=== PATIENT | female | born 2000 | race Caucasian/White ===

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

== ENCOUNTER → 2018-02-23 | Outpatient (CLI) | payer BC ==
--- NOTE | 2018-02-24 08:45 | ECHOF ---
Referral Reason:R00.8 Irregular Heartbeat MEASUREMENTS -------- HEIGHT: 165.1 cm WEIGHT: 81.6 kg BP: RVIDd: 2.8 cm (< 3.3) IVSd: 1.1 cm (0.6 - 1.1) LVIDd: 4.7 cm (3.9 - 5.3) LVPWd: 0.9 cm (0.6 - 1.1) IVSs: 1.3 cm LVIDs: 2.8 cm LVPWs: 1.5 cm LAESV Index (A-L): 24.84 ml/m Ao Diam: 2.6 cm (2.0 - 3.7) AV Cusp: 2.0 cm (1.5 - 2.6) LA Diam: 3.1 cm (2.7 - 3.8) EPSS: 0.6 cm MV E Mekhi: 0.91 m/s MV DecT: 250 ms MV A Mekhi: 0.64 m/s MV E/A Ratio: 501.03 RAP: 5.00 mmHg RVSP: 17.88 mmHg MV EF SLOPE: 209.63 mm/s (70 - 150) MV EXCURSION: 1.69 cm (> 18.000) FINDINGS -------- Sinus rhythm with extra systolic beats. This was a technically good study. The left ventricular size is normal. Left ventricular wall thickness is normal. Overall left vent ricular systolic function is normal with, an EF between 55 - 60 %. The right ventricle is normal in size and function. Normal LA size by volume 22+/-6 ml/m2. The right atrium is normal in size. The aortic valve is trileaflet, and appears structurally normal. No aortic stenosis or regurgitation. The mitral valve is normal. There is trace mitral regurgitation. Trace tricuspid regurgitation present. Right ventricular systolic pressure is normal at < 35 mmHg. There is no evidence of pulmonary hypertension. Trace/mild (physiologic) pulmonic regurgitation. The aortic root size is normal. Normal inferior vena cava with normal inspiratory collapse consistent with estimated right atrial pre ssure of 5 mmHg. There is no pericardial effusion. CONCLUSIONS -------- 1. Sinus rhythm with extra systolic beats. 2. This was a technically good study. 3. The left ventricular size is normal. 4. Left ventricular wall thickness is normal. 5. Overall left ventricular systolic function is normal with, an EF between 55 - 60 %. 6. Normal LA size by volume 22+/-6 ml/m2. 7. The aortic valve is trileaflet, and appears structurally normal. No aortic stenosis or regurgitati on. 8. There is trace mitral regurgitation. 9. Trace tricuspid regurgitation present. 10. Right ventricular systolic pressure is normal at < 35 mmHg. 11. There is no evidence of pulmonary hypertension. 12. Trace/mild (physiologic) pulmonic regurgitation. 13. The aortic root size is normal. 14. There is no pericardial effusion. CHARTERED ACCOUNTANT: Haroon Garcia RDCS
== END | disposition home or self-care (01) ==
LOC: RADECHMAIN 15:30
PROVIDERS: ATTEND Internal Medicine
DX: R00.8 Other abnormalities of heart beat (principal)
CPT/HCPCS: 93306

== ENCOUNTER → 2020-06-30 | Outpatient (CLI) | payer BC ==
--- NOTE | 2020-06-30 11:39 | ECHOF ---
Referral Reason:R00.2 palpitations MEASUREMENTS -------- HEIGHT: 165.1 cm WEIGHT: 99.8 kg BP: RVIDd: 2.6 cm (< 3.3) IVSd: 1.3 cm (0.6 - 1.1) LVIDd: 3.9 cm (3.9 - 5.3) LVPWd: 1.5 cm (0.6 - 1.1) IVSs: 1.7 cm LVIDs: 2.6 cm LVPWs: 1.7 cm LAESV Index (A-L): 12.74 ml/m Ao Diam: 2.5 cm (2.0 - 3.7) AV Cusp: 2.1 cm (1.5 - 2.6) MV EXCURSION: 24.816 mm (> 18.000) MV EF SLOPE: 135 mm/s (70 - 150) EPSS: 0.4 cm MV E Mekhi: 0.73 m/s MV DecT: 310 ms MV A Mekhi: 0.35 m/s MV E/A Ratio: 2.07 RAP: 5.00 mmHg RVSP: 30.18 mmHg FINDINGS -------- This was a technically adequate study. The left ventricular size is normal. There is mild concentric left ventricular hypertrophy. Overa ll left ventricular systolic function is normal with, an EF between 55 - 60 %. The diastolic fillin g pattern is normal for the age of the patient 6.95. The right ventricle is normal in size. Normal LA size by volume 22+/-6 ml/m2. The right atrial size is normal. Interatrial and interventricular septum intact. There is no evidence of aortic regurgitation. There is no evidence of aortic stenosis. No mitral regurgitation. Mild tricuspid regurgitation present. There is no evidence of pulmonary hypertension. The right v entricular systolic pressure, as measured by Doppler, is 30.18mmHg. Trace/mild (physiologic) pulmonic regurgitation. The aortic root size is normal. Normal inferior vena cava with normal inspiratory collapse consistent with estimated right atrial pre ssure of 5 mmHg. There is no pericardial effusion. CONCLUSIONS -------- 1. The left ventricular size is normal. 2. There is mild concentric left ventricular hypertrophy. 3. Overall left ventricular systolic function is normal with, an EF between 55 - 60 %. 4. The diastolic filling pattern is normal for the age of the patient 6.95 5. Mild tricuspid regurgitation present. 6. Trace/mild (physiologic) pulmonic regurgitation. LINE DRIVER: Augusta Pulliam RDCS
== END | disposition home or self-care (01) ==
LOC: RADECHMAIN 10:42
PROVIDERS: ATTEND Internal Medicine
DX: I08.8 Other rheumatic multiple valve diseases (principal)
CPT/HCPCS: 93306

== ENCOUNTER 2021-02-11 10:33 | Day surgery (SDC) | payer BC ==
[2021-02-10 08:36] VITALS: BMI 37.3
[2021-02-11 11:05] VITALS: RESP 16; TEMP 98.3
[2021-02-11] MEDS ORDERED: LACTATED RINGERS 1,000 ML IV ONE (11:08)
[2021-02-11] MEDS ORDERED: LIDOCAINE 1% (10MG/ML) FOR IV START INTRADERMA ONE (11:09)
[2021-02-11] MEDS ORDERED: fentaNYL (PF) 50 MCG/ML 2 ML AMP ONE (11:59)
[2021-02-11] MEDS ORDERED: MIDAZOLAM 2 MG/2 ML VIAL ONE (11:59)
[2021-02-11] MEDS ORDERED: PROPOFOL 10 MG/ML 20 ML VIAL IV ONE (11:59)
--- NOTE | 2021-02-11 12:38 | P.PCN ---
Date of Procedure: 02/11/21 Description of Procedure: BRIEF HISTORY: Patient is a 20-year-old female presented for outpatient colonoscopy for evaluation of blood in stool. Patient reports intermittent blood per rectum. She reports alternating diarrhea and constipation. She does note a intolerance to dairy. She reports abdominal bloating, distention and pain. No family history of colon cancer, Crohn's disease or ulcerative colitis. PROCEDURE PERFORMED: Colonoscopy with biopsy. PREOPERATIVE DIAGNOSIS: Blood in stool, change in bowel habits, no prior colonoscopy. ESTIMATED BLOOD LOSS: Minimal. IV sedation per Anesthesia. PROCEDURE: After informed consent was obtained, the patient, was brought into the endoscopy unit. IV sedation was administered by Anesthesia under continuous monitoring. Digital rectal examination was normal. Initially the Olympus CF-190 flexible video colonoscope was then inserted in the rectum, gradually advanced into the cecum without any difficulty. Careful examination was performed as the scope was gradually being withdrawn. Ileocecal valve and the appendiceal orifice were visualized and appeared normal. Prep was excellent. Mucosa of the cecum, ascending colon, transverse colon, descending colon, sigmoid colon, and rectum appeared normal, with random biopsies taken of the right colon, left colon and rectum. Terminal ileum was intubated and appeared normal with biopsies taken. There was only a small amount of mild erythema in the rectum likely prep re lated. Retroflexion was performed in the rectum and no lesions were seen. The patient tolerated the procedure well. IMPRESSION: Minimal superficial erythema in the distal rectum likely prep related changes, otherwise normal-appearing colon from rectum to cecum with normal-appearing terminal ileum. Random biopsies taken of the right colon, left colon, rectum and terminal ileum. Internal hemorrhoids. RECOMMENDATIONS: Findings of this examination were discussed with the patient and her family. Okay to resume diet. Okay to resume medications. Await pathology from biopsies. Patient was recommended to try a FODMAP diet for symptomatic improvement.
[2021-02-11 12:58] VITALS: BP 118/65; PULSE 98
== END 2021-02-11 13:38 | disposition home or self-care (01) ==
LOC: ORWHC2ENDO 10:33
PROVIDERS: ATTEND Internal Medicine
DX: K62.89 Other specified diseases of anus and rectum (principal); K64.8 Other hemorrhoids; K59.00 Constipation, unspecified; R19.7 Diarrhea, unspecified; Z88.0 Allergy status to penicillin; Z79.3 Long term (current) use of hormonal contraceptives; Z79.899 Other long term (current) drug therapy; Z98.890 Other specified postprocedural states; R00.0 Tachycardia, unspecified; J30.2 Other seasonal allergic rhinitis
CPT/HCPCS: 81025; 88305; 45380; J2250; J3010; J2704

== ENCOUNTER → 2021-08-03 | Outpatient (CLI) | payer BC ==
--- NOTE | 2021-08-03 16:51 | US ---
EXAMINATION TYPE: US thyroid st tissue head/neck DATE OF EXAM: 08/03/2021 COMPARISON: NONE CLINICAL HISTORY: E04.9 Goiter. GLAND SIZE: Right Lobe: 4.3 x 1.3 x 1.4cm Overall Parenchyma: homogenous Left Lobe: 4.3 x 1.2 x 1.4 Overall Parenchyma: homogeneous Isthmus Thickness: 0.3 cm NODULES RIGHT: # of nodules measured on right: 1. 0.2 X 0.1 x 0.3 cm, mid, cystic or almost completely cystic, nodule, which is wider than tall, w ith smooth margins, without echogenic foci. Prior size: 0.3 X 0.3 x 0.2 cm LEFT: # of nodules measured on left: 1. 0.2 X 0.2 x 0.2 cm, mid, cystic or almost completely cystic, nodule, which is wider than tall, wi th smooth margins, without echogenic foci Prior size: 0.3 X 0.1 x 0.2cm ISTHMUS: # of nodules measured in the isthmus: 0 Bilateral neck scanned, no evidence of lymphadenopathy. IMPRESSION: Benign findings 2017 ACR TI-RADS LEVEL: TR-RADS 1 - BENIGN: No FNA *Highest TI-RADS level nodule reported
== END | disposition home or self-care (01) ==
LOC: RADUSWWP 14:04
PROVIDERS: ATTEND Family Medicine
DX: E04.2 Nontoxic multinodular goiter (principal)
CPT/HCPCS: 76536